=== PATIENT | male | born 1990 | race Caucasian/White ===

== ENCOUNTER 2016-10-29 02:07 | Emergency (ER) | payer OTHER ==
[~2016-10-29] VITALS: Ht 172.7 cm; Wt 98.8 kg
[2016-10-29 02:56] LABS: HEMATOCRIT 44.1 % (38.0-50.0); MCH 30.1 PG (29.0-34.0); MCHC 32.9 G/DL (30.0-36.0); MCV 91.5 FL (86-99); MEAN PLAT.VOLUME 9.9 uM^3 (9.0-12.4); PLATELET COUNT 236 K/uL (156-360); RBC DIS.WIDTH-CV 13.4 % (11.8-14.6); RBC DIS.WIDTH-SD 45.9 % (39-53); RED BLOOD COUNT 4.82 M/uL (4.00-5.50); WHITE BLOOD COUNT 13.6 K/uL (4.1-10.2)
[2016-10-29 03:06] LABS: CHLORIDE 106 mEq/L (99-109); POTASSIUM 3.9 mEq/L (3.7-5.4); SODIUM 137 mEq/L (136-147)
[2016-10-29 03:08] LABS: GLUCOSE 124 mg/dL (70-99)
[2016-10-29 03:09] LABS: ANION GAP 7 MEQ/L (2-14)
[2016-10-29 03:12] LABS: GFR ESTIMATE (CALCULATED) > 59 mL/min/; UREA NITROGEN (BUN) 23 mg/dL (9-23)
[2016-10-29] MEDS ORDERED: MOTRIN600 MG PO (04:40)
[2016-10-29 04:57] VITALS: BP 111/58
== END 2016-10-29 04:58 | disposition home or self-care (01) ==
LOC: EME 02:07
PROVIDERS: Emergency Medicine
DX: R07.89 Other chest pain (principal); S01.21XD Laceration without foreign body of nose, subsequent encounter; V48.6XXD Car passenger injured in noncollision transport accident in traffic accident, subsequent encounter; F17.200 Nicotine dependence, unspecified, uncomplicated
CPT/HCPCS: 71260; 74177; 80048; 85027; 99281; 99284; J7030